=== PATIENT | male | born 1970 | race Caucasian/White ===

== ENCOUNTER → 2020-04-16 15:01 | Outpatient (CLI) | payer BC, SELFPAY ==
--- NOTE | 2020-04-16 15:12 | XR_ITS ---
PROCEDURE: XR RIBS LT MIN 3V W [id number] CLINICAL INDICATION: FALL OFF LADDER 04/15/20, LT CHEST PAIN Posttraumatic pain COMPARISON: No exams were available for comparison FINDINGS: There are nondisplaced fractures of the left 9th and 10th ribs laterally. No evidence of pneumothorax. Frontal view of the chest shows no acute finding. No effusions. IMPRESSION: Nondisplaced fracture left 9th and 10th ribs laterally Dictated by: Dov Nagy MD 04/16/2020 16:04 Dov Nagy MD in [place] 04/16/2020 16:04
== END ==
PROVIDERS: PCP Internal Medicine; Visit Provider Internal Medicine
DX: R07.89 Other chest pain (principal)
CPT/HCPCS: 71046; 71101